=== PATIENT | male | born 1995 | race African-American/Black ===

== ENCOUNTER 2023-05-25 15:55 | Outpatient (CLI) | payer BC | END 2023-05-25 15:56 | disposition home or self-care (01) | LOC: BICRAD 15:55 | PROVIDERS: ATTEND Family Medicine | DX: M54.50 Low back pain, unspecified (principal); M53.3 Sacrococcygeal disorders, not elsewhere classified; M46.1 Sacroiliitis, not elsewhere classified; M47.816 Spondylosis without myelopathy or radiculopathy, lumbar region | CPT/HCPCS: 72100; 72202 ==